=== PATIENT | male | born 1975 | race Caucasian/White ===

== ENCOUNTER 2019-03-30 08:41 | Emergency (ER) | payer OTHER ==
[~2019-03-30] VITALS: Ht 180.3 cm; Wt 111.1 kg
[~2019-03-30 08:41] MED LIST: ALBU90OI INH; AMOCLA875 PO; AMOX500 PO; CEPH500 PO; CODACE30 PO; CRUTCH4 USE; CYCL10 PO; Cyclobenzaprine5 MG PO; HYDACE5325 PO; LEVFLO500 PO; MAGCIT300 PO; MEDICAL MARIJUANA; METPRE4DP PO; NAPR500 PO; Naprosyn500 MG PO; Norco 5-325 Ta1 EACH PO; OMEP20ER PO; ONDA4 PO; ONDA8ODT MM; OXYACE5T PO; OXYACE7.5T PO; PRED10 PO; PROM25 PO; PROM25S PR; PSEU120ER PO; Percocet 5-3251 EACH PO; Percocet 7.5-31 EACH PO; Prednisone20 MG PO; TRAM50 PO; Zithromax250 MG PO; Zofran Odt4 MG SL
[2019-03-30 09:34] LABS: BASOPHILS ABSOLUTE AUTO 0.05 K/mm3 (0.00-0.23); BASOPHILS PERCENT AUTO 1 % (0-2); EOSINOPHILS ABSOLUTE AUTO 0.16 K/mm3 (0.00-0.68); EOSINOPHILS PERCENT AUTO 2 % (0-6); Hematocrit 46.9 % (37.0-53.0); Hemoglobin 15.5 g/dL (13.5-17.5); IMMATURE GRAN ABSOLUTE AUTO 0.02 K/mm3 (0.00-0.10); IMMATURE GRAN PERCENT AUTO 0 % (0-1); LYMPHOCYTES ABSOLUTE AUTO 2.65 K/mm3 (0.84-5.20); LYMPHOCYTES PERCENT AUTO 35 % (21-46); MONOCYTES ABSOLUTE AUTO 0.55 K/mm3 (0.16-1.47); MONOCYTES PERCENT AUTO 7 % (4-13); Mean Corpuscular HGB 28.7 pg (26.0-34.0); Mean Corpuscular Volume 87 fL (80-100); Mean Platelet Volume 9.9 fL (9.1-12.4); NEUTROPHILS ABSOLUTE AUTO 4.05 K/mm3 (1.96-9.15); NEUTROPHILS PERCENT AUTO 54 % (41-73); Platelet Count 260 K/mm3 (150-400); RDW Coefficient Variation 12.3 % (11.7-14.2); Red Blood Cell Count 5.41 M/mm3 (4.30-5.90); White Blood Cell Count 7.48 K/mm3 (4.00-11.30)
[2019-03-30 09:47] LABS: Alanine Aminotransfer (ALT/SGP 29 U/L (12-78); Albumin, Blood 3.8 g/dL (3.4-5.0); Alk Phos 86 U/L (50-136); Anion Gap 5 mmol/L (6-16); Aspartate Aminotrans (AST/SGOT 23 U/L (12-37); Bilirubin, Total 0.9 mg/dL (0.1-1.0); Blood Urea Nitrogen 16 mg/dL (8-24); Bun/Creatinine Ratio 15.1 (12.0-20.0); CO2, Blood 27 mmol/L (21-32); Calcium, Blood 8.4 mg/dL (8.5-10.1); Chloride, Blood 108 mmol/L (98-108); Creatinine, Blood 1.06 mg/dL (0.60-1.20); Globulin, Blood 3.7 g/dL (2.2-4.0); Glomerular Filtration Rate >60 (60-); Glucose, Blood 135 mg/dL (70-99); Potassium, Blood 4.1 mmol/L (3.5-5.5); Sodium, Blood 140 mmol/L (136-145); Total Protein, Blood 7.5 g/dL (6.4-8.2); Troponin I <0.015 ng/mL (0.000-0.040)
[2019-03-30] MEDS ORDERED: ALBU90OI INH (11:22)
[2019-03-30] MEDS ORDERED: Aerochamber1 EACH INH (11:22)
[2019-03-30] MEDS ORDERED: AERONEB GO NEB1 EACH INH (11:48)
[2019-03-30] MEDS ORDERED: ALBU2.5V5 INH (11:48)
== END 2019-03-30 11:39 | disposition home or self-care (01) ==
LOC: ER 08:41
PROVIDERS: Physician Assistant
DX: J45.909 Unspecified asthma, uncomplicated (principal); Z85.72 Personal history of non-Hodgkin lymphomas; Z88.2 Allergy status to sulfonamides
CPT/HCPCS: 36415; 71046; 80053; 84484; 85025; 93005; 93010; 99285-25

== ENCOUNTER 2021-01-01 13:22 | Day surgery (SDC) | payer OTHER ==
[~2021-01-01] VITALS: Ht 180.3 cm; Wt 117.5 kg
[~2021-01-01 13:22] MED LIST changes: +AERONEB GO NEB1 EACH INH; +ALBU2.5V5 INH; +Aerochamber1 EACH INH
--- NOTE | 2021-01-01 15:14 | NUR ---
01/01/21 1514 Tomas Gilliam 1 MG EPI ADDED TO EACH OF THE FIRST 3 BAGS OF LR PER ORDER FOR IRRIGATION.
--- NOTE | 2021-01-01 16:24 | NUR ---
01/01/21 1624 Kate Ivy 02 DC'D. 02 SATS AT 91% ON RA
--- NOTE | 2021-01-01 17:47 | NUR ---
01/01/21 1747 Kate Ivy LATE ENTRY PATIENT STATES THAT PAIN IS STILL 7/10 BUT TOLERABLE AT THIS TIME. HE WOULD LIKE TO BE DISCHARGED HOME. PATIENT REQUESTED TO HAVE RX FOR NAUSEA MEDICATION, REGULO PRATER LEFT MESSAGE W/ DR. MENDES OFFICE TO CALL IN RX FOR NAUSEA.
== END 2021-01-01 17:45 | disposition home or self-care (01) ==
LOC: ORSCSDS 13:22
PROVIDERS: Orthopaedic Surgery
PROC: 0RQJ4ZZ Repair Right Shoulder Joint, Percutaneous Endoscopic Approach (ICD-10-PCS; principal; 2021-01-01 14:45)
PROC: 0RNJ4ZZ Release Right Shoulder Joint, Percutaneous Endoscopic Approach (ICD-10-PCS; principal; 2021-01-01 14:45)
DX: S43.431A Superior glenoid labrum lesion of right shoulder, initial encounter (principal); M75.21 Bicipital tendinitis, right shoulder; M75.41 Impingement syndrome of right shoulder; M94.211 Chondromalacia, right shoulder; E66.01 Morbid (severe) obesity due to excess calories; Z68.36 Body mass index [BMI] 36.0-36.9, adult
CPT/HCPCS: A9270; C1713; J0171; J0690; J2250; J2405; J2704; J3010; J7120

== ENCOUNTER 2021-07-15 08:23 | Observation (INO) | payer OTHER ==
[~2021-07-15] VITALS: Ht 180.3 cm; Wt 117.2 kg
[2021-07-15 08:52] LABS: BASOPHILS ABSOLUTE AUTO 0.06 K/mm3 (0.00-0.23); BASOPHILS PERCENT AUTO 1 % (0-2); EOSINOPHILS ABSOLUTE AUTO 0.11 K/mm3 (0.00-0.68); EOSINOPHILS PERCENT AUTO 1 % (0-6); Hematocrit 48.5 % (37.0-53.0); Hemoglobin 16.6 g/dL (13.5-17.5); IMMATURE GRAN ABSOLUTE AUTO 0.04 K/mm3 (0.00-0.10); IMMATURE GRAN PERCENT AUTO 1 % (0-1); LYMPHOCYTES ABSOLUTE AUTO 2.43 K/mm3 (0.84-5.20); LYMPHOCYTES PERCENT AUTO 29 % (21-46); MONOCYTES ABSOLUTE AUTO 0.56 K/mm3 (0.16-1.47); MONOCYTES PERCENT AUTO 7 % (4-13); Mean Corpuscular HGB 28.7 pg (26.0-34.0); Mean Corpuscular HGB Conc 34.2 g/dL (31.5-36.5); Mean Corpuscular Volume 84 fL (80-100); NEUTROPHILS ABSOLUTE AUTO 5.32 K/mm3 (1.96-9.15); NEUTROPHILS PERCENT AUTO 62 % (41-73); Platelet Count 284 K/mm3 (150-400); RDW Coefficient Variation 12.7 % (11.7-14.2); RDW Standard Deviation 38.3 fL (35.1-46.3); Red Blood Cell Count 5.78 M/mm3 (4.30-5.90); White Blood Cell Count 8.52 K/mm3 (4.00-11.30)
[2021-07-15 09:13] LABS: Alanine Aminotransfer (ALT/SGP 30 U/L (12-78); Albumin, Blood 3.8 g/dL (3.4-5.0); Albumin/Globulin Ratio 0.9 (0.8-1.8); Alk Phos 94 U/L (50-136); Anion Gap 5 mmol/L (6-16); Aspartate Aminotrans (AST/SGOT 19 U/L (12-37); Bilirubin, Total 0.6 mg/dL (0.1-1.0); Blood Urea Nitrogen 14 mg/dL (8-24); Bun/Creatinine Ratio 13.5 (12.0-20.0); CO2, Blood 26 mmol/L (21-32); Chloride, Blood 107 mmol/L (98-108); Creatinine, Blood 1.04 mg/dL (0.60-1.20); Globulin, Blood 4.1 g/dL (2.2-4.0); Glomerular Filtration Rate >60 (60-); Glucose, Blood 122 mg/dL (70-99); Potassium, Blood 4.3 mmol/L (3.5-5.5); Sodium, Blood 138 mmol/L (136-145); Total Protein, Blood 7.9 g/dL (6.4-8.2); Troponin I <0.015 ng/mL (0.000-0.040)
[2021-07-15 11:31] LABS: U Amphetamine Screen Not Detected; U Barbituate Screen Not Detected; U Benzodiazapine Screen Not Detected; U Buprenorphine Screen Not Detected; U Cannabinoids Screen DETECTED; U Cocaine Screen Not Detected; U Methadone Screen Not Detected; U Methamphetamine Screen Not Detected; U Opiates Screen Not Detected; U Oxycodone Screen Not Detected; U Phencyclidine Screen Not Detected; U Propoxyphene Screen Not Detected
[2021-07-15 12:36] LABS: CHOL/HDL RATIO 4.9; Cholesterol 210 mg/dL (50-200); HDL Cholesterol 43 mg/dL (>39); LDL/HDL RATIO 2.7; Low Density Lipoprotein Chol 117 mg/dL (0-110); Triglycerides 248 mg/dL (30-160); Very Low Density Lipoprot Chol 49 mg/dL (6-32)
[2021-07-15 12:42] LABS: Influenza A, PCR NEGATIVE (NEGATIVE); Influenza B, PCR NEGATIVE (NEGATIVE); Resp Syncytial Virus, PCR NEGATIVE (NEGATIVE); SARS-Cov-2 (COVID-19) PCR, MMC NEGATIVE (NEGATIVE)
[2021-07-15 12:52] LABS: International Normalized Ratio 0.98; Prothrombin Time Results 10.3 Sec (9.7-11.5)
--- NOTE | 2021-07-15 18:10 | NUR ---
PT ARRIVED IN THE [facility], ER PT FOR CHEST PAIN. NO INTERVENTION DONE TODAY VESSELS ARE CLEARED PER REPORT, STILL HAS SOME CHEST PAIN UPON ARRIVAL, SUSPECTING ENDOCARDITIS ECHO IN THE AM. RIGHT RADIAL SITE, CDI NO HEMATOMA OR BLEEDING NOTED AROUND THE SITE. VITALS HRR SR/SB 45-70'S, BP SYSTOLIC 130'S, SATS ABOVE 95% ON RA, AFEBRILE. PT ALSO C/O HEADACHE AND NAUSEA, IV MORPHINE 2MG AND ZOFRAN GIVEN BOTH WERE EFFECTIVE. PT HAD EMESIS X2 AFTER DINNER SODA AND CRACKERS GIVEN. PT NOW RESTING IN BED NO OTHER ISSUES REPORTED AT THIS TIME, ABLE TO MAKE NEEDS KNOWN. INDEPENTDENT IN THE ROOM, ALERT AND ORIENTED AND PLEASANT. WILL REPORT TO ONCOMING SHIFT
--- NOTE | 2021-07-15 22:48 | NUR ---
ASSUMED CARE OF PT AT 1900. PLEASANT A/OX4 PATIENT SITTING UP IN BED. REPORTS INTERMITTENT CP AT A 12/27, NO TELE CHANGES NOTED. PATIENT HAD EPISODES OF VOMITING ON DAYSHIFT, WILL MEDICATE FOR NAUSEA THE SAME TIME FOR PAIN MEDICATIONS TO HELP PREVENT. R RADIAL SITE C/D/I, WITH RADIAL PULSES +2 BL. MAINTAINS ABOVE 95% ON RA WITH CLEAR LS. WILL UPDATE CHANGES OCCUR.
[2021-07-16 03:49] LABS: Hematocrit 43.9 % (37.0-53.0); Hemoglobin 14.9 g/dL (13.5-17.5); Mean Corpuscular HGB 28.8 pg (26.0-34.0); Mean Corpuscular HGB Conc 33.9 g/dL (31.5-36.5); Mean Corpuscular Volume 85 fL (80-100); Mean Platelet Volume 9.8 fL (9.1-12.4); Platelet Count 249 K/mm3 (150-400); RDW Coefficient Variation 12.6 % (11.7-14.2); Red Blood Cell Count 5.18 M/mm3 (4.30-5.90); White Blood Cell Count 9.34 K/mm3 (4.00-11.30)
[2021-07-16 04:17] LABS: Anion Gap 6 mmol/L (6-16); Blood Urea Nitrogen 14 mg/dL (8-24); Bun/Creatinine Ratio 14.9 (12.0-20.0); CO2, Blood 26 mmol/L (21-32); Calcium, Blood 8.3 mg/dL (8.5-10.1); Chloride, Blood 108 mmol/L (98-108); Creatinine, Blood 0.94 mg/dL (0.60-1.20); Glomerular Filtration Rate >60 (60-); Glucose, Blood 89 mg/dL (70-99); Magnesium, Blood 2.1 mg/dL (1.6-2.4); Potassium, Blood 4.2 mmol/L (3.5-5.5); Sodium, Blood 140 mmol/L (136-145)
[2021-07-16] MEDS ORDERED: COLCHICINE0.6 MG PO (08:31)
[2021-07-16] MEDS ORDERED: INDO50 PO (08:33)
[2021-07-16] MEDS ORDERED: Prilosec Otc20 MG PO (08:34)
[2021-07-16] MEDS ORDERED: ONDA4ODT MM (08:35)
[2021-07-16] MEDS ORDERED: VALS80 PO (08:35)
--- NOTE | 2021-07-16 09:08 | NUR ---
DISCHARGE: Pt very anxious for discharge. Removed his heart monitor and IV. Pt stated that he will lose his job if he doesn't get there on time. Physicians were notified and DC order was placed. Rx were faxed to [facility]. ZIo patch was placed by heart center RN. Printed and written discharge instructions were gone over with patient. F/U appointments scheduled. Pt denies questions or concerns, verbalized understanding. Ambulated out. Stable at time of discharge.
== END 2021-07-16 09:00 | disposition home or self-care (01) ==
LOC: ER 08:23 → PCU 08:24
PROVIDERS: Nurse Practitioner Acute Care; Student in an Organized Health Care Education/Training Program; ADMIT Internal Medicine
DX: I20.0 Unstable angina (principal); I31.9 Disease of pericardium, unspecified; I51.7 Cardiomegaly; E78.2 Mixed hyperlipidemia; R03.0 Elevated blood-pressure reading, without diagnosis of hypertension; G89.29 Other chronic pain; E73.9 Lactose intolerance, unspecified; I49.8 Other specified cardiac arrhythmias; E66.01 Morbid (severe) obesity due to excess calories; Z23 Encounter for immunization; Z20.822 Contact with and (suspected) exposure to COVID-19; Z85.72 Personal history of non-Hodgkin lymphomas; Z92.21 Personal history of antineoplastic chemotherapy; Z90.3 Acquired absence of stomach [part of]; Z68.34 Body mass index [BMI] 34.0-34.9, adult; Z88.2 Allergy status to sulfonamides; Z91.010 Allergy to peanuts; Z91.018 Allergy to other foods; Z86.16 Personal history of COVID-19
CPT/HCPCS: 0241U; 36415; 71046; 76937; 80048; 80053; 80061; 83036; 83735; 83880; 84443; 84484; 85025; 85027; 85347; 85379; 85520; 85610; 85651; 85730; 86140; 90686; 93005; 93010; 93246; 93306; 93454; 96374; 96375; 99152; 99285-25; A9270; C1769; C1894; G0378; J1644; J2250; J2270; J2405; J3010; J7030; J7050; Q9967

== ENCOUNTER 2022-01-27 08:04 | Day surgery (SDC) | payer OTHER ==
[~2022-01-27] VITALS: Ht 179 cm; Wt 117.6 kg
[~2022-01-27 08:04] MED LIST changes: +COLCHICINE0.6 MG PO; +INDO50 PO; +ONDA4ODT MM; +Prilosec Otc20 MG PO; +VALS80 PO
[2022-01-27] MEDS ORDERED: OMEP20ER PO (08:26)
--- NOTE | 2022-01-27 09:00 | NUR ---
01/27/22 0900 Jorge Jones HISTORY, CHART, MEDICATIONS AND ALLERGIES REVIEWED BEFORE START OF PROCEDURE. PATIENT CONFIRMS NPO STATUS AND AGREES WITH SCHEDULED PROCEDURE. 3-LEAD EKG REVIEWED WITH PHYSICIAN PRIOR TO START OF PROCEDURE. MONITOR INTACT WITH CONTINUOUS PULSE OXIMETRY,CAPNOGRAPHY, 3-LEAD EKG, INTERMITTENT BP. SUPPLEMENTAL O2 TO BE TITRATED THROUGHOUT PROCEDURE TO MAINTAIN O2 SATURATION ABOVE 90%. PATIENT DETERMINED TO BE ASA APPROPRIATE FOR PROPOFOL SEDATION PRIOR TO START OF PROCEDURE BY DR. FORREST.
--- NOTE | 2022-01-27 09:20 | NUR ---
Ambulatory in Day Surgery History, Chart, Medications and Allergies reviewed before start of procedure.Patient confirms NPO status and agrees with scheduled surgery. Patient states colon prep results clear. Patient States Post-Procedure ride home has been arranged.
--- NOTE | 2022-01-27 09:54 | NUR ---
Discharge instructions reviewed with patient. Patient verbalizes understanding. Copy given to patient to take home.
--- NOTE | 2022-01-27 10:05 | NUR ---
Discharged via wheelchair to private car for ride home.
== END 2022-01-27 10:10 | disposition home or self-care (01) ==
LOC: ORSCMMR 08:04 → ORD 09:00 → ORSCMMR 10:10
PROVIDERS: Internal Medicine Gastroenterology
PROC: 0DBP8ZX Excision of Rectum, Via Natural or Artificial Opening Endoscopic, Diagnostic (ICD-10-PCS; principal; 2022-01-27 09:00)
PROC: 0DBN8ZX Excision of Sigmoid Colon, Via Natural or Artificial Opening Endoscopic, Diagnostic (ICD-10-PCS; principal; 2022-01-27 09:00)
PROC: 0DB98ZX Excision of Duodenum, Via Natural or Artificial Opening Endoscopic, Diagnostic (ICD-10-PCS; principal; 2022-01-27 09:00)
PROC: 0DB48ZX Excision of Esophagogastric Junction, Via Natural or Artificial Opening Endoscopic, Diagnostic (ICD-10-PCS; principal; 2022-01-27 09:00)
PROC: 0DB78ZX Excision of Stomach, Pylorus, Via Natural or Artificial Opening Endoscopic, Diagnostic (ICD-10-PCS; principal; 2022-01-27 09:00)
PROC: 0DB58ZX Excision of Esophagus, Via Natural or Artificial Opening Endoscopic, Diagnostic (ICD-10-PCS; principal; 2022-01-27 09:00)
DX: K62.5 Hemorrhage of anus and rectum (principal); R11.2 Nausea with vomiting, unspecified; K29.70 Gastritis, unspecified, without bleeding; B96.81 Helicobacter pylori [H. pylori] as the cause of diseases classified elsewhere; K20.90 Esophagitis, unspecified without bleeding; K29.80 Duodenitis without bleeding; D12.5 Benign neoplasm of sigmoid colon; K64.8 Other hemorrhoids; E66.9 Obesity, unspecified; Z68.37 Body mass index [BMI] 37.0-37.9, adult
CPT/HCPCS: 88305; 88342; A9270; J2250; J2704; J7120

== ENCOUNTER 2022-08-25 06:48 | Emergency (ER) | payer OTHER ==
[~2022-08-25] VITALS: Ht 154.9 cm; Wt 123.0 kg
[2022-08-25] MEDS ORDERED: ONDA4ODT MM (07:58)
== END 2022-08-25 08:18 | disposition home or self-care (01) ==
LOC: ER 06:48
DX: U07.1 COVID-19 (principal); I10 Essential (primary) hypertension; Z88.2 Allergy status to sulfonamides; Z91.018 Allergy to other foods
CPT/HCPCS: 71045; 99284-25

== ENCOUNTER 2022-09-07 05:53 | Inpatient (IN) | payer OTHER ==
[~2022-09-07] VITALS: Ht 180.3 cm; Wt 122.4 kg
[~2022-09-07 05:53] MED LIST changes: +IBU600 MG PO
[2022-09-07 07:07] LABS: BASOPHILS ABSOLUTE AUTO 0.03 K/mm3 (0.00-0.23); BASOPHILS PERCENT AUTO 0 % (0-2); EOSINOPHILS ABSOLUTE AUTO 0.03 K/mm3 (0.00-0.68); EOSINOPHILS PERCENT AUTO 0 % (0-6); Hematocrit 38.3 % (37.0-53.0); Hemoglobin 13.3 g/dL (13.5-17.5); IMMATURE GRAN ABSOLUTE AUTO 0.04 K/mm3 (0.00-0.10); IMMATURE GRAN PERCENT AUTO 0 % (0-1); LYMPHOCYTES ABSOLUTE AUTO 1.46 K/mm3 (0.84-5.20); LYMPHOCYTES PERCENT AUTO 12 % (21-46); MONOCYTES ABSOLUTE AUTO 1.09 K/mm3 (0.16-1.47); MONOCYTES PERCENT AUTO 9 % (4-13); Mean Corpuscular HGB 28.3 pg (26.0-34.0); Mean Corpuscular HGB Conc 34.7 g/dL (31.5-36.5); Mean Corpuscular Volume 82 fL (80-100); Mean Platelet Volume 9.8 fL (9.1-12.4); NEUTROPHILS ABSOLUTE AUTO 9.56 K/mm3 (1.96-9.15); NEUTROPHILS PERCENT AUTO 78 % (41-73); Platelet Count 259 K/mm3 (150-400); RDW Coefficient Variation 12.1 % (11.7-14.2); RDW Standard Deviation 36.1 fL (35.1-46.3); White Blood Cell Count 12.21 K/mm3 (4.00-11.30)
[2022-09-07 07:28] LABS: Albumin, Blood 3.4 g/dL (3.4-5.0); Albumin/Globulin Ratio 0.8 (0.8-1.8); Bilirubin, Total 1.1 mg/dL (0.1-1.0); Calcium, Blood 8.8 mg/dL (8.5-10.1); Creatinine, Blood 1.46 mg/dL (0.60-1.20); Potassium, Blood 3.7 mmol/L (3.5-5.5); Total Protein, Blood 7.4 g/dL (6.4-8.2)
[2022-09-07 07:43] LABS: Source, Urine Clean Catch
[2022-09-07 07:50] LABS: Bilirubin, Urine Neg (Neg); Blood, Urine 2+ (Neg); Glucose Qualitative, Urine Neg (Neg); Ketones, Urine 1+ (Neg); Leukocyte Esterase, Urine Neg (Neg); Nitrite, Urine Neg (Neg); Protein, Urine 2+ (Neg); Specific Gravity, Urine 1.025 (1.003-1.022); Urobilinogen, Urine NORM (Normal)
[2022-09-07 07:57] LABS: Appearance, Urine Clear (Clear); Bacteria Not Seen /hpf; Color, Urine Yellow (P-Yellow); Squamous Epithelial Cells Rare /hpf (Few); White Blood Cells, Urine Not Seen /hpf (0-5)
[2022-09-07 09:13] LABS: Prothrombin Time Results 10.5 Sec (9.7-11.5)
[2022-09-07 09:52] LABS: CHOL/HDL RATIO 3.7; Cholesterol 156 mg/dL (50-200); HDL Cholesterol 42 mg/dL (>39); Low Density Lipoprotein Chol 83 mg/dL (0-110); Triglycerides 156 mg/dL (30-160); Very Low Density Lipoprot Chol 31 mg/dL (6-32)
[2022-09-07] MEDS ORDERED: Diovan40 MG PO (13:45)
--- NOTE | 2022-09-07 14:10 | NUR ---
ASSUMED CARE: PT ADMITTED TO ROOM 305. C/O RIGHT FLANK PAIN AND DRY HEAVING. MEDICATED FOR NAUSEA AND PAIN, WITH FENTANYL. PT STATES PAIN RETURNED WITHIN 15 MINUTES. CALL TO CATRACHITO HONG WHO INSTRUCTS TO GIVE DILAUDID INSTEAD OF FENTANYL. ASKED ABOUT HEAT VS ICE AND GELY FELT NEITHER WOULD HELP FOR RENAL INFARCT. INFORMED GELY THAT CALL TO ULTRASOUND WHO DID NOT HAVE PRELIMINARY RESULTS. GELY STATES TO FEED PT DUE TO NO PROCEDURE BEING DONE TODAY EVEN IF RESULTS ARE AVAILABLE. MEDICATED WITH DILAUDID AND PT STATED IMMEDIATE RELIEF. DECLINED SCDS AT THIS TIME. NSR ON TELE. ON RA, HEPARIN GTT CONFIRMED WITH ORDERS, NS RUNNING PER ORDERS AT Y SITE. DENIES NEEDS OR CONCERNS AT THIS TIME.
--- NOTE | 2022-09-07 17:04 | NUR ---
CALL TO DR CASTELLANO REGARDING NAUSEA MANAGEMENT. ALSO REVIEWED RENAL ULTRASOUND AND STATED TO CONTINUE WITH PLAN FOR NOW AND NO NEW CONSULTS AT THIS TIME. PT AWARE AND AGREEABLE TO PLAN.
--- NOTE | 2022-09-07 18:07 | NUR ---
SHIFT SUMMARY: PT HAS BEEN MEDICATED FOR PAIN WITH 1MG DILAUDID X2 AND FOR NAUSEA WITH ZOFRAN AND COMPAZINE. HEPARIN GTT AND NS RUNNING PER ORDERS. NO PLANS FOR IR CONSULT AT THIS TIME. PT UNDERSTANDS PLAN AND IS AGREEABLE TO IT AT THIS TIME. INDEPENDENT IN ROOM. DENIES FURTHER NEEDS OR CONCERNS AT THIS TIME.
--- NOTE | 2022-09-08 04:55 | NUR ---
SHIFT SUMMARY A/OX4, IND IN ROOM. PLEASANT AND COOPERATIVE WITH CARE. C/O PAIN TO FLANK AREA, MEDICATED PER EMAR. CONTINUES TO HAVE N/V, PRN NAUSEA MEDS ADMINISTERED. HEPARIN GTT RUNNING AT 18U/KG/HR.TELE SR IN THE 70S. DENIES CHEST PAIN/PRESSURE. SPO2 >92% ON RA. VSS, NO ACUTE CHANGES AT THIS TIME. BED IN LOWEST POSITION WITH CALL LIGHT IN REACH. WILL CONTINUE TO MONITOR AND REPORT TO ONCOMING RN.
[2022-09-08 05:27] LABS: BASOPHILS ABSOLUTE AUTO 0.03 K/mm3 (0.00-0.23); BASOPHILS PERCENT AUTO 0 % (0-2); EOSINOPHILS ABSOLUTE AUTO 0.01 K/mm3 (0.00-0.68); EOSINOPHILS PERCENT AUTO 0 % (0-6); Hematocrit 35.9 % (37.0-53.0); Hemoglobin 12.6 g/dL (13.5-17.5); IMMATURE GRAN ABSOLUTE AUTO 0.04 K/mm3 (0.00-0.10); IMMATURE GRAN PERCENT AUTO 0 % (0-1); LYMPHOCYTES PERCENT AUTO 15 % (21-46); MONOCYTES ABSOLUTE AUTO 1.23 K/mm3 (0.16-1.47); MONOCYTES PERCENT AUTO 10 % (4-13); Mean Corpuscular HGB 28.9 pg (26.0-34.0); Mean Corpuscular HGB Conc 35.1 g/dL (31.5-36.5); Mean Corpuscular Volume 82 fL (80-100); Mean Platelet Volume 10.3 fL (9.1-12.4); NEUTROPHILS ABSOLUTE AUTO 8.94 K/mm3 (1.96-9.15); NEUTROPHILS PERCENT AUTO 74 % (41-73); Platelet Count 220 K/mm3 (150-400); RDW Coefficient Variation 12.1 % (11.7-14.2); RDW Standard Deviation 36.4 fL (35.1-46.3); Red Blood Cell Count 4.36 M/mm3 (4.30-5.90); White Blood Cell Count 12.05 K/mm3 (4.00-11.30)
[2022-09-08 06:00] LABS: Albumin, Blood 3.1 g/dL (3.4-5.0); Albumin/Globulin Ratio 0.9 (0.8-1.8); Bilirubin, Total 0.8 mg/dL (0.1-1.0); Bun/Creatinine Ratio 12.1 (12.0-20.0); Calcium, Blood 8.1 mg/dL (8.5-10.1); Creatinine, Blood 1.4 mg/dL (0.60-1.20); Globulin, Blood 3.6 g/dL (2.2-4.0); Magnesium, Blood 1.9 mg/dL (1.6-2.4); Potassium, Blood 3.5 mmol/L (3.5-5.5); Total Protein, Blood 6.7 g/dL (6.4-8.2)
--- NOTE | 2022-09-08 19:07 | NUR ---
SHIFT SUMMARY- PT IS A/O, PLESANT AND COOPERATIVE. HE IS PAINFUL IN HIS R FLANK, RECIEVING PAIN MEDICATION PRN. HE IS ON A HEPRIN DRIP MANAGED BY PHARMACY AND IS RECIEVING IV FLUIDS. HE HAS BEEN VOMITING THIS SHIFT AND IS RECIEVING PRN NAUSEA MEDICATIONS. HIS BP WAS ELEVATED THIS EVENING AND PRN HYDRAZINE WAS GIVEN. HIS BED IS IN THE LOW POSITION AND CALL LIGHT IS WITHIN REACH.
--- NOTE | 2022-09-08 22:45 | NUR ---
CALLED DR. HOFF ABOUT PTS BLOOD PRESSURE BEING 174/110 DESPITE RECEIVING HYDRALAZINE ORDERED. TO EVALUATE PTS CHART AND PUT IN NEW ORDERS.
[2022-09-09 00:19] LABS: BASOPHILS ABSOLUTE AUTO 0.03 K/mm3 (0.00-0.23); BASOPHILS PERCENT AUTO 0 % (0-2); EOSINOPHILS PERCENT AUTO 0 % (0-6); Hematocrit 34.6 % (37.0-53.0); Hemoglobin 12.3 g/dL (13.5-17.5); IMMATURE GRAN ABSOLUTE AUTO 0.06 K/mm3 (0.00-0.10); IMMATURE GRAN PERCENT AUTO 0 % (0-1); LYMPHOCYTES ABSOLUTE AUTO 1.19 K/mm3 (0.84-5.20); LYMPHOCYTES PERCENT AUTO 8 % (21-46); MONOCYTES ABSOLUTE AUTO 1.45 K/mm3 (0.16-1.47); MONOCYTES PERCENT AUTO 10 % (4-13); Mean Corpuscular HGB Conc 35.5 g/dL (31.5-36.5); Mean Corpuscular Volume 82 fL (80-100); Mean Platelet Volume 10.1 fL (9.1-12.4); NEUTROPHILS ABSOLUTE AUTO 11.98 K/mm3 (1.96-9.15); NEUTROPHILS PERCENT AUTO 81 % (41-73); Platelet Count 213 K/mm3 (150-400); RDW Standard Deviation 35.1 fL (35.1-46.3); Red Blood Cell Count 4.24 M/mm3 (4.30-5.90); White Blood Cell Count 14.71 K/mm3 (4.00-11.30)
[2022-09-09 00:54] LABS: Bun/Creatinine Ratio 9.9 (12.0-20.0); Creatinine, Blood 1.41 mg/dL (0.60-1.20); Potassium, Blood 3.4 mmol/L (3.5-5.5)
--- NOTE | 2022-09-09 06:39 | NUR ---
SHIFT SUMMARY; NO ACUTE CHANGES OVERNIGHT. THE PT RESTED IN BED FOR THE ENTIRETY OF THE NIGHT. THE PT REQUESTED Q2 DILUADID OFTEN LAST NIGHT UNTIL ABOUT 2AM, THE PT THEN NO LONGER WANTED THE DILAUDID BECAUSE THE PT EXPRESSESS HE WANTS TO GO HOME. THE PT WAS MEDICATED FOR NAUSEA ONCE LAST NIGHT WELL. THE PT IS AXO X4 AND INDEPENDENT IN THE ROOM. TELE IS IN PLACE, NSR IN THE 80'S. THE PT DENIES AND SOB, CHEST PAIN OR PRESSURE. CURRENTLY THE PT IS RESTING IN BED WITH THE BED IN THE LOWEST POSITION AND THE CALL LIGHT AT BEDSIDE.
[2022-09-09] MEDS ORDERED: AMLO5 PO (09:37)
[2022-09-09] MEDS ORDERED: ATOR80 PO (09:37)
[2022-09-09] MEDS ORDERED: ONDA4ODT MM (09:38)
[2022-09-09] MEDS ORDERED: ELIQUIS5 M2 PO (09:39)
--- NOTE | 2022-09-09 10:02 | NUR ---
DISCHARGE NOTE PT DISCHARGED TO HOME, PICKED UP BY HIS . IV REMOVED SUCCESSFULLY. DISCHARGED EDUCATION AND INFORMATION PROVIDED. MEDICATIONS FAXED TO THE PHARMACY OF HIS CHOICE. PERSONAL BELONGINGS RETURNED.
--- NOTE | 2022-09-09 10:18 | NUR ---
NOTE: AFTER PT DISCHARGED, MEDICATIONS UPDATED AND ZOFRAN AND IBU WERE DISCONTINUED. FORM SENT TO THE PHARMACY FOR CLARIFICATION AND CALLED THE PT TO LET HIM KNOW ABOUT THE CHANGES. HE ACKNOWLEDGED AND AGREED TO THE NEW MEDICATIONS LIST.
== END 2022-09-09 09:59 | disposition home health service (06) | DRG 699 ==
LOC: ER 05:53 → MEDS 05:54
PROVIDERS: Emergency Medicine; Family Medicine; Nurse Practitioner Acute Care; ADMIT Hospitalist
DX: N28.0 Ischemia and infarction of kidney (principal); N17.9 Acute kidney failure, unspecified; E78.5 Hyperlipidemia, unspecified; I10 Essential (primary) hypertension; R31.9 Hematuria, unspecified; R00.1 Bradycardia, unspecified; E87.6 Hypokalemia; K29.50 Unspecified chronic gastritis without bleeding; E86.9 Volume depletion, unspecified; R00.2 Palpitations; Z85.72 Personal history of non-Hodgkin lymphomas; Z98.890 Other specified postprocedural states; Z88.2 Allergy status to sulfonamides; Z91.018 Allergy to other foods; Z87.19 Personal history of other diseases of the digestive system; Z86.79 Personal history of other diseases of the circulatory system; Z86.16 Personal history of COVID-19; Z79.899 Other long term (current) drug therapy; Z86.19 Personal history of other infectious and parasitic diseases
CPT/HCPCS: 36415; 74177; 80048; 80053; 80061; 81001; 82570; 83690; 83735; 84156; 85025; 85520; 85610; 85730; 93005; 93010; 93306; 93975; 96361; 96365-59; 96366-59; 96375-59; 96376; 96376-59; 99285-25; A9270; G0378; J0360; J0780; J1170; J1644; J2405; J3010; J7030; J7120; Q9967

== ENCOUNTER → 2022-10-15 | Outpatient (CLI) | payer OTHER ==
[~2022-10-15] MED LIST changes: +AMLO5 PO; +ATOR80 PO; +Diovan40 MG PO; +ELIQUIS5 M2 PO
[2022-10-15 13:19] LABS: BASOPHILS ABSOLUTE AUTO 0.06 K/mm3 (0.00-0.23); BASOPHILS PERCENT AUTO 1 % (0-2); EOSINOPHILS ABSOLUTE AUTO 0.15 K/mm3 (0.00-0.68); EOSINOPHILS PERCENT AUTO 2 % (0-6); Hematocrit 41.4 % (37.0-53.0); Hemoglobin 14.2 g/dL (13.5-17.5); IMMATURE GRAN ABSOLUTE AUTO 0.03 K/mm3 (0.00-0.10); IMMATURE GRAN PERCENT AUTO 0 % (0-1); LYMPHOCYTES ABSOLUTE AUTO 2.43 K/mm3 (0.84-5.20); LYMPHOCYTES PERCENT AUTO 27 % (21-46); MONOCYTES ABSOLUTE AUTO 0.56 K/mm3 (0.16-1.47); MONOCYTES PERCENT AUTO 6 % (4-13); Mean Corpuscular HGB 27.8 pg (26.0-34.0); Mean Corpuscular HGB Conc 34.3 g/dL (31.5-36.5); Mean Corpuscular Volume 81 fL (80-100); Mean Platelet Volume 9.7 fL (9.1-12.4); NEUTROPHILS ABSOLUTE AUTO 5.64 K/mm3 (1.96-9.15); NEUTROPHILS PERCENT AUTO 64 % (41-73); Platelet Count 276 K/mm3 (150-400); RDW Coefficient Variation 12.4 % (11.7-14.2); RDW Standard Deviation 36.7 fL (35.1-46.3); White Blood Cell Count 8.87 K/mm3 (4.00-11.30)
[2022-10-15 13:34] LABS: Albumin, Blood 3.8 g/dL (3.4-5.0); Bilirubin, Direct 0.2 mg/dL (0.0-0.3); Bilirubin, Indirect 0.6 mg/dL (0.1-0.7); Bilirubin, Total 0.8 mg/dL (0.1-1.0); Bun/Creatinine Ratio 15.8 (12.0-20.0); Creatinine, Blood 1.33 mg/dL (0.60-1.20); Globulin, Blood 3.9 g/dL (2.2-4.0); Phosphorus, Blood 2.6 mg/dL (2.5-4.9); Potassium, Blood 4.1 mmol/L (3.5-5.5); Total Protein, Blood 7.7 g/dL (6.4-8.2)
== END ==
LOC: LAB SHORT 12:14 → LAB 12:14
PROVIDERS: Family Medicine
DX: N28.0 Ischemia and infarction of kidney (principal)
CPT/HCPCS: 80053; 82248; 84100; 85025

== ENCOUNTER 2024-02-06 11:37 | Day surgery (SDC) | payer OTHER ==
[~2024-02-06] VITALS: Ht 180.3 cm; Wt 118.5 kg
[~2024-02-06 11:37] MED LIST changes: +FentaNYL Citrate 50 MCG/ML 2 ML Injection ONE; +HYDR1TAB94 PO; +propofoL 20 ML IV ONE
[2024-02-06] MEDS ORDERED: CeFAZolin Sodium 2,000 MG VIAL ONE (11:56)
[2024-02-06] MEDS ORDERED: Lactated Ringer's 1,000 ML IV ONE ×2 (11:56→12:05)
[2024-02-06] MEDS ORDERED: Midazolam HCl 1MG / ML 2ML Vial ONE (12:21)
[2024-02-06] MEDS ORDERED: Ketorolac Tromethamine 30mg Vial ONE (12:46)
[2024-02-06] MEDS ORDERED: Dexamethasone Sod Phos 10 MG/ML 1ML VIAL ONE (12:52)
[2024-02-06] MEDS ORDERED: Ondansetron HCl 2 MG / ML 2ML Vial ONE (12:52)
[2024-02-06] MEDS ORDERED: EPINEPhrine HCl 1 MG/ML 1ML Amp XX ONE (13:02)
[2024-02-06] MEDS ORDERED: Ropivacaine 0.5% HCl/Pf 5 MG/ML 20ML VIAL INJ ONE (13:02)
--- NOTE | 2024-02-06 13:04 | NUR ---
02/06/24 1304 Tomas Gilliam 1 MG EPI ADDED TO THE FIRST BAG OF LR FOR IRRIGATION AT [facility] ROPIVACAINE 0.5% 10 ML MIXED & VERIFIED W/ EPI 0.05ML (1MG/ML) TO MAKE ROPIVACAINE 0.5% 1:200,000 FOR INJECTION AT [facility] BY DR ESPINOZA.
[2024-02-06] MEDS ORDERED: FentaNYL Citrate 50 MCG/ML 2 ML Injection ONE ×2 (13:45→14:37)
[2024-02-06] MEDS ORDERED: HYDROcodone 5-APAP 325 TAB ONE (14:27)
[2024-02-06 14:41] VITALS: BP 140/97
--- NOTE | 2024-02-06 14:44 | NUR ---
02/06/24 1444 COLLIN RUBIO RN WENT OVER DC INSTRUCTIONS AND GAVE FENTANYL 50MCG IV FOR 01/27 PAIN/ POALAR PACK ON KNEE
== END 2024-02-06 14:55 | disposition home or self-care (01) ==
LOC: ORSCSDS 11:37
PROVIDERS: Orthopaedic Surgery
PROC: 0SBC4ZZ Excision of Right Knee Joint, Percutaneous Endoscopic Approach (ICD-10-PCS; principal; 2024-02-06 13:15)
DX: S83.281A Other tear of lateral meniscus, current injury, right knee, initial encounter (principal); I10 Essential (primary) hypertension; K21.9 Gastro-esophageal reflux disease without esophagitis; F41.8 Other specified anxiety disorders; E66.9 Obesity, unspecified; Z68.36 Body mass index [BMI] 36.0-36.9, adult
CPT/HCPCS: A9270; J0171; J0690; J1100; J1885; J2250; J2405; J2704; J2795; J3010; J7120

== ENCOUNTER → 2024-09-27 | Outpatient (CLI) | payer OTHER ==
[~2024-09-27] MED LIST changes: -FentaNYL Citrate 50 MCG/ML 2 ML Injection ONE; -propofoL 20 ML IV ONE
[2024-09-27 20:03] LABS: Alanine Aminotransfer (ALT/SGP 27 U/L (12-78); Albumin, Blood 4.2 g/dL (3.4-5.0); Alk Phos 110 U/L (50-136); Anion Gap 8 mmol/L (3-11); Aspartate Aminotrans (AST/SGOT 18 U/L (12-37); Bilirubin, Total 0.7 mg/dL (0.1-1.0); Blood Urea Nitrogen 22 mg/dL (8-24); CHOL/HDL RATIO 5.5; CO2, Blood 26 mmol/L (21-32); Chloride, Blood 105 mmol/L (98-108); Cholesterol 240 mg/dL (50-200); Creatinine, Blood 1.22 mg/dL (0.60-1.20); Glomerular Filtration Rate 73 (60-); Glucose, Blood 99 mg/dL (70-99); HDL Cholesterol 44 mg/dL (>39); LDL/HDL RATIO 3.4; Low Density Lipoprotein Chol 147 mg/dL (0-110); Potassium, Blood 4.2 mmol/L (3.5-5.5); Sodium, Blood 135 mmol/L (136-145); Total Protein, Blood 8.2 g/dL (6.4-8.2); Triglycerides 243 mg/dL (30-160); Very Low Density Lipoprot Chol 48 mg/dL (6-32)
[2024-09-28 23:16] LABS: RHEUMATOID FACTOR 23 IU/mL (0-14)
[2024-09-29 05:15] LABS: ANTI-NUCLEAR AB ANA,IGG ELISA None Detected (None Detected)
[2024-09-29 10:54] LABS: CYCLIC CITRULLINATED PEP,IGG/A 12 Units (0-19)
== END ==
LOC: LAB SHORT 14:55 → LAB 14:55
PROVIDERS: Family Medicine
DX: I31.9 Disease of pericardium, unspecified (principal); Z79.899 Other long term (current) drug therapy
CPT/HCPCS: 80053; 80061; 82306; 86038; 86200; 86431

== ENCOUNTER → 2025-05-29 | Outpatient (CLI) | payer OTHER ==
[2025-05-29 17:35] LABS: Alanine Aminotransfer (ALT/SGP 112.0 U/L (12-78); Albumin, Blood 4.0 g/dL (3.4-5.0); Albumin/Globulin Ratio 1.1 (0.8-1.8); Anion Gap 8.0 mmol/L (3-11); Aspartate Aminotrans (AST/SGOT 50.0 U/L (12-37); Bilirubin, Total 0.7 mg/dL (0.1-1.0); Blood Urea Nitrogen 18.0 mg/dL (8-24); CO2, Blood 25.0 mmol/L (21-32); Calcium, Blood 8.8 mg/dL (8.5-10.1); Chloride, Blood 107.0 mmol/L (98-108); Creatinine, Blood 1.25 mg/dL (0.60-1.20); Globulin, Blood 3.6 g/dL (2.2-4.0); Glucose, Blood 101.0 mg/dL (70-99); Potassium, Blood 4.2 mmol/L (3.5-5.5); Sodium, Blood 136.0 mmol/L (136-145); Total Protein, Blood 7.6 g/dL (6.4-8.2)
== END ==
LOC: LAB SHORT 11:10 → LAB 11:10
PROVIDERS: Family Medicine
DX: I31.9 Disease of pericardium, unspecified (principal)
CPT/HCPCS: 80053